=== PATIENT | male | born 1995 | race Caucasian/White ===

== ENCOUNTER 2021-06-23 16:00 | Emergency (ER) | payer OTHER ==
[~2021-06-23] VITALS: Ht 190.5 cm; Wt 104.3 kg
[2021-06-23] MEDS ORDERED: SUPRAX400 M1 PO (16:14)
[2021-06-23] MEDS ORDERED: DOXYCYCLINE 10100 MG PO (16:14)
[2021-06-23 16:16] VITALS: BP 115/65
[2021-06-23 16:19] LABS: URINE BILIRUBIN NEGATIVE (Negative); URINE BLOOD NEGATIVE (Negative); URINE CLARITY CLEAR; URINE COLOR YELLOW; URINE GLUCOSE-RANDOM NEGATIVE (Negative); URINE KETONES TRACE (Negative); URINE LEUKOCYTES-REFLEX NEGATIVE (Negative); URINE NITRITE-REFLEX NEGATIVE (Negative); URINE PROTEIN TRACE (Negative); URINE SPECIFIC GRAVITY >= 1.030 (1.005-1.030); URINE UROBILINOGEN 0.2 E.U./dl (0.2-1.0)
== END 2021-06-23 16:20 | disposition home or self-care (01) ==
LOC: M.ERS 16:00
PROVIDERS: Nurse Practitioner Family
DX: N34.2 Other urethritis (principal)

== ENCOUNTER 2021-09-19 13:46 | Emergency (ER) | payer OTHER ==
[~2021-09-19] VITALS: Ht 190.5 cm; Wt 86.2 kg
[~2021-09-19 13:46] MED LIST: DOXYCYCLINE 10100 MG PO; SUPRAX400 M1 PO
[2021-09-19] MEDS ORDERED: NAPROSYN500 MG PO (15:09)
[2021-09-19] MEDS ORDERED: AMOXICILLIN 50500 MG PO (15:09)
[2021-09-19 15:17] VITALS: BP 130/89
== END 2021-09-19 15:18 | disposition home or self-care (01) ==
LOC: M.ERS 13:46
DX: H66.91 Otitis media, unspecified, right ear (principal); F17.210 Nicotine dependence, cigarettes, uncomplicated